=== PATIENT | female | born 1975 | race Caucasian/White ===

== ENCOUNTER 2017-06-05 16:11 | Inpatient (IN) ==
[2017-06-05] MEDS ORDERED: 0.9 % Sodium Chloride 1,000 ML IVC ONE (17:19)
[2017-06-05] MEDS ORDERED: Ondansetron 4 MG/2 ML VIAL IVP ONE (17:19)
[2017-06-05] MEDS ORDERED: *HR* Morphine 2 MG/ML SYRINGE IVP ONE (17:19)
[2017-06-05 17:32] LABS: Basophils % 0.3 %; Eosinophils # 0.4 K/mcL (0.0-0.6); Eosinophils % 2.6 %; Hematocrit 32.2 % (35.3-44.9); Hemoglobin 11.1 g/dL (11.5-15.4); Immature Granulocytes % 0.6 % (0-4); Lymphocytes # 2.9 K/mcL (0.6-4.6); Lymphocytes % 19.2 %; Mean Corpuscular HGB Conc 34.5 g/dL (31.6-35.5); Mean Corpuscular Hemoglobin 38.9 pg (28.0-33.3); Mean Platelet Volume 11.9 fL (9.4-12.4); Monocytes # 1.5 K/mcL (0.0-1.3); Monocytes % 9.6 %; Neutrophils # 10.4 K/mcL (1.6-8.9); Nucleated Red Blood Cells 0.1 /100 WBC (0); Platelet Count 166 K/mcL (140-400); Red Blood Count 2.85 M/mcL (3.82-4.97); Red Cell Distribution Width 16.5 % (11.5-14.5); Segmented Neutrophils % 67.7 %
[2017-06-05 17:35] LABS: Basophils # 0.1 K/mcL (0.0-0.2)
--- NOTE | 2017-06-05 17:35 | Emergency Department Note ---
Disposition Clinical Impression: Transaminitis, Elevated bilirubin, Biliary sludge Leukocytosis Qualifiers: Leukocytosis type: unspecified Qualified Code(s): D72.829 - Elevated white blood cell count, unspecified Disposition: Admitted As Inpatient Condition: Good Referrals: Malena Schreiber CNP [Primary Care Provider] - Forms: ED Satisfaction Letter, Work/School Release Abdominal Pain HPI - General Chief Complaint: ED Abdominal Pain Stated Complaint: ABD Pain,N/V [id number] Time Seen by Provider: 06/05/17 16:28 Source: patient Mode of arrival: private vehicle Limitations: no limitations Nursing Notes Reviewed: Yes Vital Signs Reviewed: Yes - History of Present Illness HPI Narrative: 42-year-old female no medical history who presents to the ER due to abdominal pain. Patient states she has had constant abdominal pain for the last 3 weeks on the right side. Reports she is nauseated and has some vomiting but it was nonbloody and nonbilious. No fevers or diarrhea. No history of abdominal surgeries. No dysuria or hematuria however she has noted that her urine has been dark. No sick contacts. No other complaints. Pt Subjective Complaint: abdominal pain Onset (ago): week(s) Consistency: constant Location: RUQ, R flank Pain Severity: moderate Pain Scale: 8 Quality: stabbing Radiation: none Migration to: no migration Improves with: rest Worsens with: movement Associated symptoms: Reports: nausea, vomiting. Denies: diarrhea, fever, dysuria, hematuria Treatments prior to arrival: none - Related Data Home Medications Medication Instructions Recorded Confirmed Metoprolol [Lopressor] 100 mg PO BID 10/11/15 06/05/17 Allergies Allergy/AdvReac Type Severity Reaction Status Date / Time No Known Allergies Allergy Verified 06/05/17 16:15 All systems ED: reviewed and negative except as stated. Constitutional: Denies: fever Cardiovascular: Denies: chest pain Respiratory: Denies: dyspnea Gastrointestinal: Reports: abdominal pain, nausea, vomiting. 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 history Psychiatric history: Reports: no psych history - Social History Smoking status: Current every day smoker Alcohol use: Reports: occasionally Drug use: Reports: none Physical Exam - General Limitations: no limitations General appearance: alert, in no apparent distress - Head Head exam: atraumatic - Eye Eye exam: Present: normal appearance, scleral icterus - ENT ENT exam: normal exam - Neck Neck exam: Present: normal inspection, full ROM - Chest Chest inspection: Present: normal inspection, symmetric chest wall rise - Respiratory Respiratory exam: Present: normal lung sounds bilaterally - Cardiovascular Cardiovascular exam: Present: regular rate, normal rhythm, normal heart sounds - Abdominal Exam Abdominal exam: Present: soft, tenderness (Moderate tenderness to palpation in the right upper quadrant and right flank without distention guarding or rigidity.) - Extremities Exam Extremities exam: Present: normal inspection, full ROM - Expanded Upper Extremity Exam Shoulder exam: Present: normal inspection, full ROM Arm exam: Present: normal inspection, full ROM Elbow exam: Present: normal inspection, full ROM Forearm/Wrist exam: Present: normal inspection, full ROM Hand exam: Present: normal inspection, full ROM - Expanded Lower Extremity Exam Hip/Pelvis exam: Present: normal inspection, full ROM Upper leg exam: Present: normal inspection, full ROM Knee exam: Present: normal inspection, full ROM Lower leg exam: Present: normal inspection, full ROM Ankle exam: Present: normal inspection, full ROM Foot/toe exam: Present: normal inspection, full ROM Neurovascular/Tendon exam: Absent: motor deficit, sensory deficit - Neurological Exam Neurological exam: Present: alert - Psychiatric Psychiatric exam: Present: normal affect - Skin Skin exam: Present: warm, dry, intact Course Course Narrative: Patient seen and examined. CT scan of the abdomen and pelvis as well as labs. Urinalysis ordered. We will give her some IV fluids, morphine and Zofran. - Reevaluation(s) Reevaluation #1: Discussed results and imaging lab work with the patient. Agreeable with gallbladder ultrasound as well as hepatitis panel and admission. She does report that she drinks a pint and a half of vodka daily with last drink last night. No history of withdrawal. - Consultations Consultation #1: I spoke with the on-call hospice consultant Dr. Saleh. Discussed the patient's history and exam labs and imaging. Reports the CT findings are nonspecific and will perform an MRCP. Vital Signs Temperature 98.2 F 06/05/17 16:12 Pulse Rate 73 06/05/17 16:12 Respiratory Rate 16 06/05/17 16:12 Blood Pressure 118/76 06/05/17 16:12 O2 Sat by Pulse Oximetry 97 06/05/17 16:12 Temperature 98.2 F 06/05/17 16:12 Pulse Rate 80 06/05/17 19:38 Respiratory Rate 16 06/05/17 19:38 Blood Pressure 109/52 06/05/17 19:38 O2 Sat by Pulse Oximetry 97 06/05/17 19:38 Oxygen Delivery Oxygen Delivery Room Air Abdominal Pain - MDM Narrative Medical decision making narrative: 42-year-old female presents to the ER due to right-sided abdominal pain for 3 weeks in duration. Afebrile here. Initial labs showed an elevated bilirubin as well as transaminitis. Lipase is normal. CT scan with multiple findings including questionable enteritis as well as mesenteric stranding. She has had no diarrhea recently. Given her transaminitis and an ultrasound was performed which shows biliary sludge without ultrasound evidence of acute cholecystitis. She does report drinking a pint and a half of vodka daily without history of withdrawal. I discussed this case with the on-call hospice consultant. Patient admitted to the hospitalist service with gastroenterology consultation. - Lab Data Lab results reviewed: Yes I reviewed the patient's lab results. Result diagrams: 06/05/17 17:12 06/05/17 17:12 Lab Results 06/05/17 06/05/17 06/05/17 Range/Units 17:12 17:12 17:12 WBC 15.3 H (4.3-11.1) K/mcL RBC 2.85 L (3.82-4.97) M/mcL Hgb 11.1 L (11.5-15.4) g/dL Hct 32.2 L (35.3-44.9) % MCV 113.0 H (83.0-100.0) fL MCH 38.9 H (28.0-33.3) pg MCHC 34.5 (31.6-35.5) g/dL RDW 16.5 H (11.5-14.5) % Plt Count 166 (140-400) K/mcL MPV 11.9 (9.4-12.4) fL Immature Gran % 0.6 (0-4) % Seg Neutrophils % 67.7 % Lymphocytes % 19.2 % Monocytes % 9.6 % Eosinophils % 2.6 % Basophils % 0.3 % Neutrophils # 10.4 H (1.6-8.9) K/mcL Lymphocytes # 2.9 (0.6-4.6) K/mcL Monocytes # 1.5 H (0.0-1.3) K/mcL Eosinophils # 0.4 (0.0-0.6) K/mcL Basophils # 0.1 (0.0-0.2) K/mcL Nucleated RBCs/100 WBC 0.1 H (0) /100 WBC Platelet Estimate Normal (Normal) Macrocytosis Present A (Not Present) PT (9.4-12.1) Seconds INR APTT (26.0-36.0) Seconds Sodium 136 (136-145) mEq/L Potassium 3.4 L (3.5-4.5) mEq/L Chloride 99 (98-109) mEq/L Carbon Dioxide 26 (19-29) mEq/L BUN 4 L (7-20) mg/dL Creatinine 0.62 (0.57-1.11) mg/dL Est GFR ( Amer) > 60 (> 60) Est GFR (Non-Af Amer) > 60 (> 60) BUN/Creatinine Ratio 6 (6-26) Glucose 111 H (70-99) mg/dL Calculated Osmolality 280 (280-300) Calcium 8.9 (8.6-10.8) mg/dL Total Bilirubin 4.7 H (0.2-1.2) mg/dL Direct Bilirubin 3.0 H (0.0-0.5) mg/dL Indirect Bilirubin 1.7 H (0.0-1.2) mg/dL AST 128 H (5-34) Units/L ALT 36 (0-55) Units/L Alkaline Phosphatase 113 (38-126) Units/L Serum Total Protein 7.4 (6.0-8.3) g/dL Albumin 2.7 L (3.5-5.0) g/dL Globulin 4.7 H (2.4-3.5) g/dL Albumin/Globulin Ratio 0.6 L (1.1-2.2) Lipase 30 (8-78) Units/L Ur Specimen Adequacy Urine Color (Yellow) Urine Clarity (Clear) Urine pH Ur Specific [place] Urine Protein Urine Glucose (UA) Urine Ketones Urine Blood Urine Nitrite Urine Bilirubin Urine Urobilinogen Ur Leukocyte Esterase Urine Microscopic RBC (0-3) per hpf Urine Microscopic WBC (0-3) per hpf Ur Squamous Epith Cells (None-Few) per lpf Amorphous Sediment (Few) Urine Bacteria (None-Few) per hpf Hyaline Casts (None-Few) per lpf Ur Culture Indicated? (NO) Hepatitis A IgM Ab Nonreactive (Nonreactive) Hep Bs Antigen Nonreactive (Nonreactive) Hep B Core IgM Ab Nonreactive (Nonreactive) Hepatitis C Ab Screen Nonreactive (Nonreactive) 06/05/17 06/05/17 Range/Units 17:12 18:33 WBC (4.3-11.1) K/mcL RBC (3.82-4.97) M/mcL Hgb (11.5-15.4) g/dL Hct (35.3-44.9) % MCV (83.0-100.0) fL MCH (28.0-33.3) pg MCHC (31.6-35.5) g/dL RDW (11.5-14.5) % Plt Count (140-400) K/mcL MPV (9.4-12.4) fL Immature Gran % (0-4) % Seg Neutrophils % % Lymphocytes % % Monocytes % % Eosinophils % % Basophils % % Neutrophils # (1.6-8.9) K/mcL Lymphocytes # (0.6-4.6) K/mcL Monocytes # (0.0-1.3) K/mcL Eosinophils # (0.0-0.6) K/mcL Basophils # (0.0-0.2) K/mcL Nucleated RBCs/100 WBC (0) /100 WBC Platelet Estimate (Normal) Macrocytosis (Not Present) PT 15.6 H (9.4-12.1) Seconds INR 1.4 APTT 40.5 H (26.0-36.0) Seconds Sodium (136-145) mEq/L Potassium (3.5-4.5) mEq/L Chloride (98-109) mEq/L Carbon Dioxide (19-29) mEq/L BUN (7-20) mg/dL Creatinine (0.57-1.11) mg/dL Est GFR ( Amer) (> 60) Est GFR (Non-Af Amer) (> 60) BUN/Creatinine Ratio (6-26) Glucose (70-99) mg/dL Calculated Osmolality (280-300) Calcium (8.6-10.8) mg/dL Total Bilirubin (0.2-1.2) mg/dL Direct Bilirubin (0.0-0.5) mg/dL Indirect Bilirubin (0.0-1.2) mg/dL AST (5-34) Units/L ALT (0-55) Units/L Alkaline Phosphatase (38-126) Units/L Serum Total Protein (6.0-8.3) g/dL Albumin (3.5-5.0) g/dL Globulin (2.4-3.5) g/dL Albumin/Globulin Ratio (1.1-2.2) Lipase (8-78) Units/L Ur Specimen Adequacy See below A Urine Color [place] A (Yellow) Urine Clarity [place] A (Clear) Urine pH TNP Ur Specific [place] TNP Urine Protein TNP Urine Glucose (UA) TNP Urine Ketones TNP Urine Blood TNP Urine Nitrite TNP Urine Bilirubin TNP Urine Urobilinogen TNP Ur Leukocyte Esterase TNP Urine Microscopic RBC 0-3 (0-3) per hpf Urine Microscopic WBC 3-5 H (0-3) per hpf Ur Squamous Epith Cells Many H (None-Few) per lpf Amorphous Sediment Many H (Few) Urine Bacteria Few (None-Few) per hpf Hyaline Casts None Seen (None-Few) per lpf Ur Culture Indicated? NO (NO) Hepatitis A IgM Ab (Nonreactive) Hep Bs Antigen (Nonreactive) Hep B Core IgM Ab (Nonreactive) Hepatitis C Ab Screen (Nonreactive) - Radiology Data Radiology results reviewed: Yes I reviewed the patient's radiology results. Abdomen/Pelvis CT 06/05/17 17:19 IMPRESSION: 1. Increased severe hepatomegaly. Periportal hypodensity suggests an atypical distribution of steatosis. However, superimposed hepatitis is not excluded given pain. Early cirrhotic change may also be present. 2. Questionable wall thickening and stranding associated with some proximal jejunal loops, potentially enteritis. 3. Edema or inflammatory stranding in the small bowel mesentery, extending toward the pancreas. Pancreatitis could result in this appearance. 4. Increased size of a 2.1 cm x 0.9 cm predominantly solid part solid nodule in the left lower lobe with a new adjacent 0.8 cm x 0 7 cm nodule. Additional solid nodules measuring up to 0.6 cm x 0.4 cm are present the right lower lobe and lingula. An infectious or inflammatory etiology is favored with the largest nodule potentially representing a dilated bronchus with secretions. Recommend follow-up chest CT in 3-6 months per the Fleischner Society recommendations for solid pulmonary nodules as below. 5. Questionable tree-in-bud opacities in the lingula, suggesting infectious or inflammatory bronchiolitis. 6. Mild splenomegaly, trace ascites, and increased venous collateral formation, potentially due to portal hypertension. RECOMMENDATIONS: Fleischner Society guidelines for follow-up and management of incidentally detected pulmonary nodules: Multiple Solid Nodules: Nodule size greater than 8 mm In a high-risk patient, CT at 3-6 months, then CT at 18-24 months. Radiology 2017 http://pubs.rsna.org/doi/full/[email or web address] D/ / Chay Pepe MD / Chay Pepe MD Interpreting Provider: Chay Pepe MD Gallbladder Ultrasound 06/05/17 18:39 IMPRESSION: 1. Gallbladder sludge without sonographic evidence of acute cholecystitis. 2. Trace pericholecystic free fluid is favored reactive secondary to hepatic disease as there is hepatomegaly with diffusely coarsened hepatic parenchymal echogenicity in keeping with chronic bibasilar dysfunction. D/ / Feroz Alvarez MD / Feroz Alvarez MD Interpreting Provider: Feroz Alvarez MD S.B.AHarleen - SKeilaAHarleen Situation: Demographics, MOA Background: Presenting Complaint, Relevant PMH, Meds, & Allergies Assessment: Vital Signs, Course and respsone to treatment, Exam Concerns, Patient/Family Expectation, Pertinant Lab Results Recommendation: Barrier(s) to disposition, Recommendation based on pending studies, treatments, or consults SCeciliaBMarcial Report Given to: Dr. Aleta Wasserman Repor Time: 19:56
[2017-06-05 17:49] LABS: Alanine Aminotransferase 36 Units/L (0-55); Albumin 2.7 g/dL (3.5-5.0); Albumin/Globulin Ratio 0.6 (1.1-2.2); Alkaline Phosphatase 113 Units/L (38-126); Aspartate Amino Transferase 128 Units/L (5-34); BUN/Creatinine Ratio 6 (6-26); Bilirubin,Indirect 1.7 mg/dL (0.0-1.2); Bilirubin,Total 4.7 mg/dL (0.2-1.2); Calcium 8.9 mg/dL (8.6-10.8); Carbon Dioxide 26 mEq/L (19-29); Chloride 99 mEq/L (98-109); Globulin 4.7 g/dL (2.4-3.5); Glucose 111 mg/dL (70-99); Lipase 30 Units/L (8-78); Osmolality,Calculated 280 (280-300); Potassium 3.4 mEq/L (3.5-4.5); Sodium 136 mEq/L (136-145); Total Protein 7.4 g/dL (6.0-8.3); eGFR For African Americans > 60 (> 60); eGFR For Non-African Americans > 60 (> 60)
[2017-06-05 17:50] LABS: Blood Urea Nitrogen 4 mg/dL (7-20)
[2017-06-05 17:52] LABS: Macrocytosis Present (Not Present)
[2017-06-05 17:53] LABS: Platelet Estimate Normal (Normal)
--- NOTE | 2017-06-05 18:31 | Emergency Department Note ---
START Narrative - START START: I examined this patient and my medical decision-making was reviewed with the Resident Physician. I agree with the documented findings, disposition and treatment plan as described except to the extent set forth below. 42 year old female presnts to the ED with RUQ pain and sclera icterus and drinks abotu 3-4 pint of vodka a day and is nexcpericngin increased nasuea. Patinet has elevated bilirubin and AST, no previous diagoniss of liver cirrhosis or hepatitis. Concern for acute pipo vs live pathology. liipase normal. We will do a ABCT and likey consult to GI .
[2017-06-05 18:45] LABS: Clarity,Urine Turbid (Clear)
[2017-06-05 19:00] LABS: Color,Urine Orange (Yellow)
[2017-06-05 19:04] LABS: Hyaline Casts,Urine None Seen per lpf (None-Few)
[2017-06-05 19:05] LABS: Amorphous Sediment,Urine Many (Few); Squamous Epithelial Cell,Urine Many per lpf (None-Few)
[2017-06-05 19:06] LABS: RBC,Urine 0-3 per hpf (0-3)
[2017-06-05 19:07] LABS: Bacteria,Urine Few per hpf (None-Few)
[2017-06-05] MEDS ORDERED: Piperacillin/Tazobactam 3.375 GM in D5% in Water (Mini-Bag+) 100 ML IVPB ONE (19:15)
[2017-06-05] MEDS: Piperacillin/Tazobactam 3.375 GM in D5% in Water (Mini-Bag+) 100 ML IVPB ONE ×2 (19:27→19:31)
[2017-06-05 19:43] LABS: INR 1.4; Prothrombin Time 15.6 Seconds (9.4-12.1)
[2017-06-05 19:45] LABS: Activated Partial Thrombo Time 40.5 Seconds (26.0-36.0)
[2017-06-05 19:46] LABS: Hepatitis A Antibody IgM Nonreactive (Nonreactive); Hepatitis B Core IgM Nonreactive (Nonreactive); Hepatitis B Surface Antigen Nonreactive (Nonreactive); Hepatitis C Virus Antibody Nonreactive (Nonreactive)
[2017-06-05] MEDS ORDERED: *HR* OxyCODONE Immed Rel 5 MG TABLET PO PRN (20:37)
[2017-06-05] MEDS ORDERED: *HR* Morphine 2 MG/ML SYRINGE IVP PRN (20:37)
[2017-06-05] MEDS ORDERED: Naloxone 0.4 MG/ML INJ IVP PRN (20:37)
[2017-06-05] MEDS ORDERED: Ondansetron 4 MG/2 ML VIAL IVP PRN (20:37)
--- NOTE | 2017-06-05 20:54 | Internal Med History&Physical ---
<Artur Ignacio - Last Filed: 06/05/17 22:15> Date of Encounter: 06/05/17 Time of Encounter: 20:51 Assessment and Plan (1) Alcoholic steatohepatitis Current visit: Yes Status: Acute - Maddrey discriminant function score 21.3, good prognosis - MELD score 17 - Reported history of chronic alcohol abuse as documented below. - Elevated AST 128, elevated bili 4.7, coags and WBC elevated as well. - Abdominal CT and US show atypical steatosis with possible hepatitis as well as biliary sludge. - hepatitis panel negative. - Will continue Zosyn for infectious coverage in case of biliary sludge . - Supportive treatment. Fluids, folate, B12, pain control. Clear liquid diet as tolerated. Zofran PRN nausea. - GI consulted in ED, appreciate recommendations. (2) Alcohol abuse Current visit: Yes Status: Acute - Admits to drinking 2 pints of vodka per day for many years - States she has never withdrawn. Non anxious, non confused, VSS on exam. - CIWA protocol, q1hr checks, ativan PRN - Also giving librium 50 TID for long acting coverage. - SW consult, pt states she is ready to cut down. Cessation discussed. (3) Macrocytic anemia Current visit: Yes Status: Chronic - Likely secondary to alcohol abuse with vitamin deficiency. - Folate and B12 levels pending. - H/H stable. - Given banana bag in ED, will replenish as necessary. - Serial H/H to monitor for GI bleed. (4) HTN (hypertension) Current visit: Yes Status: Chronic - Well controlled since admission. - Continue home metoprolol with parameters to hold if BP <120/80 Qualifiers: Hypertension type: essential hypertension Qualified Code(s): I10 - Essential (primary) hypertension (5) DVT prophylaxis Current visit: Yes Status: Acute SCDs. Holding A/C due to elevated coags Internal Medicine - H&P: HPI Chief complaint: abdominal pain Admitted From: Emergency Dept Plans for Post Hospital Care: Home History of present illness: Ms. Da Silva is a 42 year old female who presents to ED with a complaint of RUQ abdominal pain, nausea, vomiting x 3 weeks. She has a PMhx of HTN and GBS following kidney infection. She states the pain and nausea have been constant in this time. Describes the pain as stabbing and sometimes wraps around her right side. Admits to approximately 1 episode of emesis per day in the morning. Denies any sick contacts, recent travel, new foods, changes in meds, needle sticks or work exposures. She does admit to drinking heavily including approximately 2 pints of vodka per night for many years. Her last drink was last evening. She denies any history of withdrawls. Denies any symptoms of chest pain, SOB, fevers, new numbness or tingling, palpitations, HORNER, lightheadedness. Also admits to decreased oral intake due to nausea and pain, blurry visionx 2-3 days. In the ED, VSS, labs significant for mild white count of 15, macrocytic anemia, elevated coags, bilirubin, AST. Hepatitis panel negative. Abdominal CT shows hepatomegaly with atypical steatosis and biliary sludge. RUQ US reveals similar. Past Med Surg Social Fam HX - Past Medical History Medical history: hypertension, other (Guillain barre ) Psychiatric history: no psych history - Social History Smoking Status: Current every day smoker Smokeless Tobacco Status: No Alcohol use: occasionally Drug use: none Internal Medicine - H&P: Meds Metoprolol [Lopressor] 100 mg PO BID 10/11/15 [History] 3 Allergy/AdvReac Type Severity Reaction Status Date / Time No Known Allergies Allergy Verified 06/05/17 16:15 All Systems PM: A 10-system review of systems was performed and is negative for pertinent findings except as documented above in the HPI. - Constitutional Constitutional: chills, no anorexia, no fatigue, no fever(s) - EENT Eyes: blurry vision, change in vision - Cardiovascular Cardiovascular ROS IM: no chest pain, no diaphoresis, no dyspnea, no dyspnea on exertion, no edema, no lightheadedness, no palpitations - Respiratory Respiratory: no dyspnea, no hemoptysis, no dyspnea on exertion - Gastrointestinal Gastrointestinal: abdominal pain, nausea, vomiting, no bloating, no change in bowel habits, no change in stool character, no constipation, no diarrhea, no hematemesis, no hematochezia, no loose stools, no melena - Genitourinary Genitourinary: no dysuria - Musculoskeletal Musculoskeletal ROS IM: no muscle weakness, no numbness, no tingling - Neurological Neurological ROS: no confusion, no dizziness, no focal weakness, no headache(s) , no loss of vision, no numbness, no tingling, no weakness - Psychiatric Psychiatric: no confusion, no hallucinations - Constitutional Vitals: Temp Pulse Resp BP Pulse Ox 98.2 F 80 16 109/52 97 06/05/17 16:12 06/05/17 19:38 06/05/17 19:38 06/05/17 19:38 06/05/17 19:38 Exam: Gen.: Vitals noted. No acute distress. AAOx3 HEENT: PERRL, oropharynx clear, Normocephalic, atraumatic, MMM. No scleral icterus Cardiac: RRR, no murmur, +S1/S2 Pulmonary: mild diffuse inspiratory wheezes. equal chest expansion Abdomen: soft, mild tenderness in RUQ, hepatomegaly, BS noted, no guarding Back: Nontender throughout. MSK: ROM intact, no joint swelling noted Extremities: no BLE edema, nontender calf, no cyanosis or clubbing Skin: Non jaundiced. Telangectasia on chest wall noted. Neuro: A&Ox3, moves all extremities, no focal deficits. Absent LE reflexes, chronic due to reported GBS. Psych: Appropriate mood and behavior Internal Med - H&P Results - Labs CBC & Chem 7: 06/05/17 17:12 06/05/17 17:12 <Stevan River - Last Filed: 06/05/17 23:49> Date of Encounter: 06/05/17 Time of Encounter: 23:24 Past Med Surg Social Fam HX - Past Medical History Attestation: Yes The following information was validated with the patient. Source: patient Medical history: hypertension, other (alcohol abuse) - Past Surgical History Surgical History: no surgical history - Social History Smoking Status: Current every day smoker Alcohol use: heavy Drug use: none Current living situation: Home Activity Level: Independent ambulation Recent Out of Country Travel Within the Last 8 Weeks: No - Additional Family History Additional family history: + FH of alcohol abuse - Constitutional Constitutional: chills, no fever(s), no night sweats - EENT Ears: no ear pain, no tinnitus Nose, mouth and throat: no nasal congestion, no sinus pressure, no sore throat - Cardiovascular Cardiovascular ROS IM: no chest pain, no dyspnea - Respiratory Respiratory: no cough, no dyspnea, no hemoptysis, no chest congestion - Gastrointestinal Gastrointestinal: abdominal pain, dyspepsia, nausea, vomiting, no hematemesis, no hematochezia, no melena - Genitourinary Genitourinary: no dysuria, no flank pain, no hematuria - Musculoskeletal Musculoskeletal ROS IM: no muscle weakness, no numbness, no tingling - Integumentary Integumentary IM: no rash, no unusual bruising, no jaundice - Neurological Neurological ROS: no confusion, no dizziness, no focal weakness, no headache(s) - Psychiatric Psychiatric: no anxiety, no confusion, no depression, no hallucinations - Endocrine Endocrine IM: no polydipsia, no polyuria - Hematologic/Lymphatic Hematologic/Lymphatic: no easy bruising, no lymphadenopathy - Allergic/Immunologic Allergic/Immunologic: no wheezing, no GI upset with certain foods - Constitutional Vitals: Temp Pulse Resp BP Pulse Ox 98.3 F 66 15 111/72 99 06/05/17 20:50 06/05/17 20:50 06/05/17 20:50 06/05/17 20:50 06/05/17 20:50 General appearance: Present: cooperative, A&O X 3, pleasant, no acute distress - Head Head exam: Present: atraumatic, normal inspection - Eye Eye exam: Present: EOMI, normal appearance, PERRL, scleral icterus (mild scleral icterus) - ENT ENT exam: Present: mucous membranes dry, normal exam - Neck Neck exam general surgery: Present: supple - Respiratory Respiratory exam: Present: CTAB. Absent: rales, rhonchi, wheezes - Cardiovascular Cardiovascular exam: Present: RRR, +S1, +S2. Absent: diastolic murmur, systolic murmur - GI/Abdominal GI/Abdominal exam: Present: soft, tenderness (RUQ and epigastrium), no peritoneal signs. Absent: guarding, rebound - Extremities Exam Extremities exam: Present: full ROM, warm. Absent: calf tenderness, pedal edema - Back Exam Back exam: Absent: CVA tenderness (L), CVA tenderness (R) - Neurological Exam Neurological exam: Present: alert, oriented X3, no focal deficits - Psychiatric Psychiatric exam: Present: normal affect, normal mood - Skin Skin exam: Present: dry, warm. Absent: rash Internal Med - H&P Results - Labs CBC & Chem 7: 06/05/17 17:12 06/05/17 17:12 - Attending Attestation I discussed the patient TETLIN, PMH, ROS, lab data, and exam findings with Dr. Ignacio. I then saw and examined patient independently as well. Patient has evidence of acute hepatitis -- likely alcohol induced. Acute hepatitis serologies are negative. She is at high risk of alcohol withdrawal. I asked RN to place patient on telemetry for concerns of withdrawal and to monitor her closely on CIWA protocol. We have placed her on scheduled Librium as well with hope of preventing withdrawal. We will continue IV antibiotics for the remote possibility of infection with GI jorge. I counseled patient at length on the need to quit alcohol and she's motivated. She states she's never gone through withdrawal, but given her excessive intake of alcohol, she is at high risk of withdrawal. Other than my comments noted above and detailed exam findings, I agree with Dr. Ignacio's assessment and plan.
[2017-06-05] MEDS ORDERED: *HR* LORazepam 2 MG/ML VIAL IVP PRN (20:59)
[2017-06-05] MEDS ORDERED: Metoprolol 100 MG TABLET PO SCH (21:00)
[2017-06-05] MEDS: 0.9 % Sodium Chloride 1,000 ML IVC SCH (21:17)
[2017-06-06 01:59] LABS: Amphetamine Screen,Urine Negative ng/mL (Cutoff=1000); Barbiturate Screen,Urine Negative ng/mL (Cutoff=200); Benzodiazepines Screen,Urine Negative ng/mL (Cutoff=200); Cannabinoid Screen,Urine Positive ng/mL (Cutoff = 50); Cocaine Screen,Urine Negative ng/mL (Cutoff= 300); Opiate Screen,Urine Positive ng/mL (Cutoff=300); Phencyclidine Screen,Urine Negative ng/mL (Cutoff=25)
[2017-06-06] MEDS: Famotidine 20 MG/2 ML VIAL IVP SCH ×2 (05:03→16:08)
[2017-06-06] MEDS: 0.9 % Sodium Chloride 1,000 ML IVC SCH (05:06)
[2017-06-06 05:50] LABS: Basophils % 0.3 %; Eosinophils # 0.5 K/mcL (0.0-0.6); Eosinophils % 3.4 %; Hematocrit 29.4 % (35.3-44.9); Hemoglobin 10.1 g/dL (11.5-15.4); Immature Granulocytes % 0.5 % (0-4); Lymphocytes # 2.7 K/mcL (0.6-4.6); Lymphocytes % 19.9 %; Mean Corpuscular HGB Conc 34.4 g/dL (31.6-35.5); Mean Corpuscular Hemoglobin 38.7 pg (28.0-33.3); Mean Corpuscular Volume 112.6 fL (83.0-100.0); Mean Platelet Volume 11.6 fL (9.4-12.4); Monocytes # 1.2 K/mcL (0.0-1.3); Monocytes % 8.5 %; Neutrophils # 9.2 K/mcL (1.6-8.9); Platelet Count 150 K/mcL (140-400); Red Blood Count 2.61 M/mcL (3.82-4.97); Red Cell Distribution Width 16.6 % (11.5-14.5); Segmented Neutrophils % 67.4 %
[2017-06-06 06:03] LABS: Alanine Aminotransferase 34 Units/L (0-55); Albumin 2.7 g/dL (3.5-5.0); Albumin/Globulin Ratio 0.7 (1.1-2.2); Alkaline Phosphatase 100 Units/L (38-126); Aspartate Amino Transferase 110 Units/L (5-34); BUN/Creatinine Ratio 6 (6-26); Bilirubin,Total 4.3 mg/dL (0.2-1.2); Calcium 8.2 mg/dL (8.6-10.8); Carbon Dioxide 26 mEq/L (19-29); Chloride 100 mEq/L (98-109); Gamma Glutamyl Transpeptidase 275 Units/L (9-36); Globulin 4.1 g/dL (2.4-3.5); Glucose 97 mg/dL (70-99); Magnesium 1.6 mg/dL (1.6-2.6); Osmolality,Calculated 279 (280-300); Sodium 136 mEq/L (136-145); Total Protein 6.8 g/dL (6.0-8.3); eGFR For African Americans > 60 (> 60); eGFR For Non-African Americans > 60 (> 60)
[2017-06-06 06:06] LABS: Blood Urea Nitrogen 4 mg/dL (7-20)
[2017-06-06 06:38] LABS: Folate 2.3 ng/mL (7.0-31.4)
[2017-06-06 06:40] LABS: Macrocytosis Present (Not Present); Platelet Estimate Normal (Normal)
[2017-06-06] MEDS: Folic Acid 1 MG TABLET PO SCH (09:22)
[2017-06-06] MEDS: Metoprolol 100 MG TABLET PO SCH ×2 (09:22→20:13)
[2017-06-06] MEDS: Thiamine (B-1) 100 MG TABLET PO SCH (09:22)
[2017-06-06] MEDS: Vitamin B Complex/Vit C/Vit E 1 EACH TABLET PO SCH (09:22)
--- NOTE | 2017-06-06 09:24 | Gastroenterology Consult Note ---
Date of Encounter: 06/06/17 Time of Encounter: 09:22 - Assessment and plan (1) Alcoholic steatohepatitis Current Visit: Yes Status: Acute (2) Alcohol abuse Current Visit: Yes Status: Acute (3) Elevated bilirubin Current Visit: Yes Status: Acute - Time Spent With Patient Total time spent is greater than 50% in coordination of care (as documented) at patient's floor/unit and/or counseling patient: GI History of Present Illness - Data of Consult Consult date: 06/06/17 Requesting Physician: Melvi Rios MD - Consult Narrative Reason for consult: Alcoholic Steatohepatitis History of present illness: Ms. Da Silva is a 42 year old female Past Med Surg Social Fam HX - Past Medical History Medical history: hypertension, other (alcohol abuse) Psychiatric history: no psych history - Past Surgical History Surgical History: no surgical history - Social History Smoking Status: Current every day smoker Packs per day: 1ppd Smokeless Tobacco Status: No Alcohol use: heavy Drug use: none - Constitutional Vitals: Temp Pulse Resp BP Pulse Ox 98.5 F 67 16 108/70 98 06/06/17 07:55 06/06/17 07:55 06/06/17 07:55 06/06/17 07:55 06/06/17 07:55 Exam: General: Patient alert, awake, oriented 3, interactive, in no acute distress HEENT: Normocephalic, atraumatic, pupils equal reactive to light, nasal cavity patent and open septum median position, oral mucosa moist, uvula midline, neck supple trachea midline no palpable lymphadenopathy, no thyromegaly. Chest: Symmetric bilateral correlating with respiratory effort, effort nonlabored. Cardiac: Regular rate and rhythm, positive S1 and S2. no bruits appreciated bilateral carotids, Radial pulses 2+ bilateral, posterior tibial and dorsal pedal pulses 2+ bilateral. Respiratory: Clear to auscultation all lung workman Abdomen: Soft, nontender, positive bowel sounds, no palpable masses appreciated on examination Extremities: Symmetric bilateral, bilateral lower extremities without erythema or edema patient moving all 4 extremities spontaneously. Neurologic: No focal deficits appreciated on examination. Face symmetric, muscle strength symmetric bilateral upper and lower extremities. Results - Labs CBC & Chem 7: 06/06/17 05:35 06/06/17 05:35 Labs: Last Result Calcium 8.2 mg/dL (8.6-10.8) L 06/06/17 05:35 Vitamin B12 1043 pg/mL (213-816) H 06/06/17 05:35 Folate 2.3 ng/mL (7.0-31.4) L 06/06/17 05:35 Urine Opiates Screen Positive ng/mL (Jbxqvb=515) H 06/06/17 00:30 Entire Visit Hgb 10.1 g/dL (11.5-15.4) L 06/06/17 05:35 Hct 29.4 % (35.3-44.9) L 06/06/17 05:35 PT 15.6 Seconds (9.4-12.1) H 06/05/17 17:12 Total Bilirubin 4.3 mg/dL (0.2-1.2) H 06/06/17 05:35 AST 110 Units/L (5-34) H 06/06/17 05:35 ALT 34 Units/L (0-55) 06/06/17 05:35 Lipase 30 Units/L (8-78) 06/05/17 17:12 Folate 2.3 ng/mL (7.0-31.4) L 06/06/17 05:35 - ABG ABG results: PT/INR, D-dimer PT 15.6 Seconds (9.4-12.1) H 06/05/17 17:12 Consult Discharge Plan - Plan Referrals: Malena Schrebier, SCHOOL NURSE [Primary Care Provider] -
--- NOTE | 2017-06-06 09:24 | Discharge Summary ---
Date of Encounter: 06/06/17 Time of Encounter: 09:24 - Discharge Diagnosis (1) Alcoholic steatohepatitis Priority: Primary Status: Acute (2) Insomnia Priority: Secondary Status: Acute Qualifiers: Insomnia type: other insomnia Qualified Code(s): G47.09 - Other insomnia (3) Bronchiolitis Priority: Secondary Status: Acute (4) Lung nodules Priority: Secondary Status: Acute (5) Alcohol abuse Priority: Secondary Status: Acute (6) Biliary sludge Priority: Secondary Status: Acute (7) HTN (hypertension) Priority: Secondary Status: Chronic Qualifiers: Hypertension type: essential hypertension Qualified Code(s): I10 - Essential (primary) hypertension (8) Macrocytic anemia Priority: Secondary Status: Chronic - Discharge Medications Prescriptions: Folic Acid 1 mg PO DAILY #30 tablet Thiamine (B-1) [Vitamin B-1] 100 mg PO DAILY #30 tablet traZODone [TraZODone] 50 mg PO HS #30 tablet Home Medications: Metoprolol [Lopressor] 100 mg PO BID 10/11/15 [History] Folic Acid 1 mg PO DAILY #30 tablet 06/06/17 [Rx] Thiamine (B-1) [Vitamin B-1] 100 mg PO DAILY #30 tablet 06/06/17 [Rx] traZODone [TraZODone] 50 mg PO HS #30 tablet 06/06/17 [Rx] Allergies/Adverse Reactions: 3 Allergy/AdvReac Type Severity Reaction Status Date / Time No Known Allergies Allergy Verified 06/05/17 16:15 Date of admission: 06/05/17 23:55 Primary care physician: Malena Schreiber CNP Discharging clinician: Melvi Rios Anticipated date of discharge: 06/06/17 - Patient Status Disposition: Home, Self-Care Condition: Good Functional capacity at discharge: independent ambulation Overall status at discharge: patient is progressing back to baseline - Discharge Instructions Instructions: Chronic Hypertension (DC), Anemia (GEN) Follow Up With: Malena Schreiber CNP [Primary Care Provider] - Hospital course: Ms. Da Silva is a 42 year old female - Time Spent with Patient Total time spent providing and/or coordinating discharge services: - Constitutional Vitals: Temp Pulse Resp BP Pulse Ox 98.5 F 67 16 108/70 98 06/06/17 07:55 06/06/17 07:55 06/06/17 07:55 06/06/17 07:55 06/06/17 07:55 General appearance: Present: cooperative, A&O X 3, pleasant, no acute distress - VTE Documentation of Mechanical Device: Intermittent pneumatic compression device
[2017-06-06] MEDS ORDERED: Azithromycin 250 MG TABLET PO SCH (09:45)
--- NOTE | 2017-06-06 09:45 | Pulmonology Consult Note ---
Date of Encounter: 06/06/17 Time of Encounter: 09:44 Assessment and Plan (1) Lung nodules Current Visit: Yes Status: Acute Patient has multiple lung nodules primarily in the left lower lobe the largest of which is proximally 2 cm and this is a smooths semisolid nodule that abuts the distal bronchi. Possible consistent with mucus impaction although this is grown over the last couple years she is statistically lower risk for neoplasia but given her smoking exercises and lesion it is concerning for possibility of neoplasm. I would recommend starting with bronchoscopy with airway examination and BAL in the left lower lobe and based upon [place] biological data and cytology further outpatient investigation of repeat imaging of possible PET/CT/ biopsy. Patient is agreeable to this A bronchoscopy is recommended. The procedure , risks, benefits, complications, and expected outcomes have been reviewed. Benefits of diagnosis, as well as risks to include bleeding, infection, pneumothorax which may require surgical intervention, and in a small population. The patient is aware that sometimes test is nondiagnostic. Discussed with patient and agrees to proceed. (2) Bronchiolitis Current Visit: Yes Status: Acute Differential diagnosis for this would be smoking related lung disease or aspiration I favor at least need acute event aspiration for which a course of antimicrobials is warranted to cover for possible aspiration organisms she is currently on Zosyn which can be de-escalate her to Augmentin to complete a 7-10 day course as an outpatient. Bronchoscopy as outlined above in clearly smoking cessation would be important regardless of further diagnostic workup (3) COPD suggested by initial evaluation Current Visit: Yes Status: Acute Evidence of bronchitic phenotype from chronic smoking will need outpatient PFTs she should be discharged with a short acting beta agonist I do not feel that she has a COPD exacerbation at present (4) Tobacco abuse Current Visit: Yes Status: Acute Vital counseling given patient is understanding that tobacco is affecting her health and increased risk of neoplasia heart disease and ongoing respiratory complications she should be be be provided with a nicotine replacement while inpatient and at time of discharge (5) Alcoholic steatohepatitis Current Visit: Yes Status: Acute This is being followed by the GI service and the primary medicine service (6) Alcohol abuse Current Visit: Yes Status: Acute Counseled patient about seeking outpatient detoxification and recommend social service consult prior to discharge History of Present Illness Consult date: 06/06/17 Requesting physician: Melvi Rios Reason for consult: abnormal CXR/CT Chief complaint: RUQ Pain History of present illness: This is a 42-year-old woman with a past medical history of alcoholism tobacco abuse and morbid obesity who presented for approximately 2 week history of nausea and vomiting with ongoing alcohol use. She was found to have elevated in liver enzymes on admission with evidence of portal hypertension along with alcoholic hepatis steatosis. For that standpoint she seems to be improving since admission however it was noted on a CT of the abdomen in the lower lung field cuts that she had left lower lobe pulmonary nodules some of which have increased in size over the last year. 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 but no other significant exposures keeps dogs at home but no exotic smokes about a pack a day since the age of 18 denies IV drug abuse no recent travel or sick contacts Past Med Surg Social Fam HX - Past Medical History Medical history: hypertension, other (alcohol abuse) Psychiatric history: no psych history - Past Surgical History Surgical History: no surgical history - Social History Smoking Status: Current every day smoker Packs per day: 1ppd Smokeless Tobacco Status: No Alcohol use: heavy Drug use: none Medications and Allergies Metoprolol [Lopressor] 100 mg PO BID 10/11/15 [History] Folic Acid 1 mg PO DAILY #30 tablet 06/06/17 [Rx] Thiamine (B-1) [Vitamin B-1] 100 mg PO DAILY #30 tablet 06/06/17 [Rx] traZODone [TraZODone] 50 mg PO HS #30 tablet 06/06/17 [Rx] 3 Allergy/AdvReac Type Severity Reaction Status Date / Time No Known Allergies Allergy Verified 06/05/17 16:15 All Systems: A 10-system review of systems was performed and is negative for pertinent findings except as documented above in the HPI. Physical Examination Vital Signs: Vital Signs, Last 4 Hours Temp Pulse Resp BP Pulse Ox 06/06/17 07:55 98.5 F 67 16 108/70 98 General appearance: no acute distress Eyes: nonicteric ENT: oropharynx moist Neck: supple Effort: normal Auscultation: bilateral: rhonchi Cardiovascular: regular rate and rhythm Gastrointestinal: normoactive bowel sounds, soft, tender (Mild tenderness to deep palpation of the right upper quadrant) Integumentary: normal Extremities: no cyanosis, edema (Trace bilateral lower extremity edema which is symmetric) Musculoskeletal: no deformities normal mental status, non-focal exam mood appropriate Results - Laboratory Findings CBC and BMP: 06/06/17 05:35 06/06/17 05:35 PT/INR, D-dimer PT 15.6 Seconds (9.4-12.1) H 06/05/17 17:12 Abnormal lab findings: Abnormal lab results WBC 13.7 K/mcL (4.3-11.1) H 06/06/17 05:35 RBC 2.61 M/mcL (3.82-4.97) L 06/06/17 05:35 Hgb 10.1 g/dL (11.5-15.4) L 06/06/17 05:35 Hct 29.4 % (35.3-44.9) L 06/06/17 05:35 MCV 112.6 fL (83.0-100.0) H 06/06/17 05:35 MCH 38.7 pg (28.0-33.3) H 06/06/17 05:35 RDW 16.6 % (11.5-14.5) H 06/06/17 05:35 Neutrophils # 9.2 K/mcL (1.6-8.9) H 06/06/17 05:35 Nucleated RBCs/100 WBC 0.1 /100 WBC (0) H 06/05/17 17:12 Macrocytosis Present (Not Present) A 06/06/17 05:35 PT 15.6 Seconds (9.4-12.1) H 06/05/17 17:12 APTT 40.5 Seconds (26.0-36.0) H 06/05/17 17:12 Potassium 3.0 mEq/L (3.5-4.5) L 06/06/17 05:35 BUN 4 mg/dL (7-20) L 06/06/17 05:35 Calculated Osmolality 279 (280-300) L 06/06/17 05:35 Calcium 8.2 mg/dL (8.6-10.8) L 06/06/17 05:35 Total Bilirubin 4.3 mg/dL (0.2-1.2) H 06/06/17 05:35 Direct Bilirubin 3.0 mg/dL (0.0-0.5) H 06/05/17 17:12 Indirect Bilirubin 1.7 mg/dL (0.0-1.2) H 06/05/17 17:12 GGT 275 Units/L (9-36) H 06/06/17 05:35 AST 110 Units/L (5-34) H 06/06/17 05:35 Albumin 2.7 g/dL (3.5-5.0) L 06/06/17 05:35 Globulin 4.1 g/dL (2.4-3.5) H 06/06/17 05:35 Albumin/Globulin Ratio 0.7 (1.1-2.2) L 06/06/17 05:35 Vitamin B12 1043 pg/mL (213-816) H 06/06/17 05:35 Folate 2.3 ng/mL (7.0-31.4) L 06/06/17 05:35 Ur Specimen Adequacy See below A 06/05/17 18:33 Urine Color [place] (Yellow) A 06/05/17 18:33 Urine Clarity Turbid (Clear) A 06/05/17 18:33 Urine Microscopic WBC 3-5 per hpf (0-3) H 06/05/17 18:33 Ur Squamous Epith Cells Many per lpf (None-Few) H 06/05/17 18:33 Amorphous Sediment Many (Few) H 06/05/17 18:33 Urine Opiates Screen Positive ng/mL (Wbmkoh=788) H 06/06/17 00:30 U Marijuana (THC) Screen Positive ng/mL (Cutoff = 50) H 06/06/17 00:30 - Diagnostic Findings CT scan - chest: report reviewed, image reviewed - Clinical Findings Intake & Output: Intake & Output 06/05/17 06/06/17 06/06/17 23:59 07:59 15:59 Intake Total 1100 / 1100 360 / 360 Output Total 60 / 60 400 / 400 Balance 1040 / 1040 -40 / -40 Weight 117.197 kg Consult Discharge Plan - Plan Instructions: Chronic Hypertension (DC), Anemia (GEN) Referrals: Malena Schreiber [facility] OR MED[facility] [Primary Care Provider] - 06/17/17 1:00 pm Prescriptions: Folic Acid 1 mg PO DAILY #30 tablet Thiamine (B-1) [Vitamin B-1] 100 mg PO DAILY #30 tablet traZODone [TraZODone] 50 mg PO HS #30 tablet
[2017-06-06] MEDS ORDERED: *HR* LORazepam 2 MG/ML VIAL IVP PRN ×2 (11:04)
--- NOTE | 2017-06-06 16:05 | Internal Med Progress Note ---
Date of Encounter: 06/06/17 Time of Encounter: 13:45 - Assessment and plan (1) Alcoholic steatohepatitis Current Visit: Yes Status: Acute Assessment and plan: Liver enzymes trending down. Encouraged alcohol cessation. Patient reports taking alcohol mainly because of her insomnia. Will prescribe trazodone to help with her insomnia. licensed master social worker consult has been placed. No signs of acute alcohol withdrawal at this time. We will continue to monitor per [facility] protocol (2) Insomnia Current Visit: Yes Status: Acute Assessment and plan: Will start patient on trazodone. Qualifiers: Insomnia type: other insomnia Qualified Code(s): G47.09 - Other insomnia (3) Bronchiolitis Current Visit: Yes Status: Acute Assessment and plan: And of the abdomen and pelvis showed findings as to bronchiolitis in the chest. Pulmonology has been consulted. CT scan of the chest was ordered and this shows increasing size of lung nodule in the left lower lobe that is 2.2 cm x 1.2 cm. Multiple other solid nodules are also present bilaterally. Discussed with pulmonology. Started patient on Zosyn as patient may have had recurrent aspirations due to her chronic alcohol abuse causing these findings. We will also plan for bronchoscopy tomorrow. (4) Lung nodules Current Visit: Yes Status: Acute Assessment and plan: Discussed with pulmonology. We will do bronchoscopy. Follow-up CT scan in 4-6 weeks. (5) Alcohol abuse Current Visit: Yes Status: Acute (6) Biliary sludge Current Visit: Yes Status: Acute Assessment and plan: No signs of acute cholecystitis or cholelithiasis. Can be followed as outpatient (7) HTN (hypertension) Current Visit: Yes Status: Chronic Assessment and plan: Blood pressure is well controlled at this time Qualifiers: Hypertension type: essential hypertension Qualified Code(s): I10 - Essential (primary) hypertension (8) Macrocytic anemia Current Visit: Yes Status: Chronic Assessment and plan: With folic acid deficiency. Likely due to chronic alcohol abuse. Will start patient on folic acid replacement therapy. - Subjective Interval history: Patient was able to sleep well last night. Denies any anxiety or tremors at this time. No hallucinations. No shortness of breath or cough. No fever or chills described overnight. No new episodes of nausea or vomiting. Tolerated breakfast well this morning. - Constitutional Vitals: Temp Pulse Resp BP Pulse Ox 98.5 F 61 18 96/61 94 06/06/17 10:21 06/06/17 10:21 06/06/17 10:21 06/06/17 10:21 06/06/17 10:21 General appearance: Present: cooperative, A&O X 3, pleasant, no acute distress, answers questions appropriately - Neck Neck exam general surgery: Present: supple, trachea midline. Absent: lymphadenopathy - Respiratory Respiratory exam: Present: CTAB. Absent: accessory muscle use, rales, rhonchi, wheezes - Cardiovascular Cardiovascular exam: Present: RRR, +S1, +S2. Absent: diastolic murmur, gallop, rubs, systolic murmur - GI/Abdominal GI/Abdominal exam: Present: normal bowel sounds, soft, no peritoneal signs. Absent: distended, tenderness - Extremities Exam Extremities exam: Present: warm, radial pulses palpable and symmetrical. Absent : calf tenderness, cyanotic, pedal edema Internal Medicine: Result - Labs CBC & Chem 7: 06/06/17 05:35 06/06/17 05:35 Labs: Short CBC 06/06/17 Range/Units 05:35 WBC 13.7 H (4.3-11.1) K/mcL Hgb 10.1 L (11.5-15.4) g/dL Hct 29.4 L (35.3-44.9) % Plt Count 150 (140-400) K/mcL Neutrophils # 9.2 H (1.6-8.9) K/mcL BMP 06/06/17 05:35 Sodium 136 Potassium 3.0 L Chloride 100 Carbon Dioxide 26 BUN 4 L Creatinine 0.64 Glucose 97 Calcium 8.2 L Liver Function 06/06/17 Range/Units 05:35 Total Bilirubin 4.3 H (0.2-1.2) mg/dL GGT 275 H (9-36) Units/L AST 110 H (5-34) Units/L ALT 34 (0-55) Units/L Alkaline Phosphatase 100 (38-126) Units/L Albumin 2.7 L (3.5-5.0) g/dL - ABG Interpretation ABG results: PT/INR, D-dimer PT 15.6 Seconds (9.4-12.1) H 06/05/17 17:12 - Impressions Impressions Chest CT 06/06/17 11:30 IMPRESSION: 1. A predominantly solid 2.2 cm x 1.2 cm nodule in the peribronchovascular posterior basilar segment of the left lower lobe was previously seen as a 0.9 cm x 0.7 cm thick walled cystic lesion. An adjacent 0.9 cm x 0.7 cm solid nodule is new. The findings likely reflect an infectious or inflammatory process and could potentially represent focal bronchiectasis with mucous impaction. However, neoplasia is not excluded. Recommend follow-up chest CT in 3-6 months per the Fleischner Society recommendations for solid pulmonary nodules as below. 2. Additional solid nodules measuring up to 0.3 cm in the bilateral upper and bilateral lower lobes. Benign sequelae of an infectious inflammatory process are most likely. Recommend attention on follow-up imaging. 3. Infectious or inflammatory bronchiolitis predominantly in the lingula but with additional involvement elsewhere in the left upper and left lower lobes. 4. Minimal predominantly central bronchial wall thickening potentially due to bronchitis or reactive airways disease. 5. Heterogeneous appearance of the liver. Please refer to yesterday's abdomen and pelvis CT for further discussion. RECOMMENDATIONS: Fleischner Society guidelines for follow-up and management of incidentally detected pulmonary nodules: Multiple Solid Nodules: Nodule size greater than 8 mm In a high-risk patient, CT at 3-6 months, then CT at 18-24 months. Radiology 2017 http://pubs.rsna.org/doi/full/[email or web address] D/ / Chay Pepe MD / Chay Pepe MD Interpreting Provider: Chay Pepe MD - VTE Documentation of Mechanical Device: Intermittent pneumatic compression device Consult Discharge Plan - Plan Instructions: Chronic Hypertension (DC), Anemia (GEN) Referrals: Malena Schreiber CNP [Primary Care Provider] - 06/17/17 1:00 pm Prescriptions: Folic Acid 1 mg PO DAILY #30 tablet Thiamine (B-1) [Vitamin B-1] 100 mg PO DAILY #30 tablet traZODone [TraZODone] 50 mg PO HS #30 tablet
[2017-06-06] MEDS: Piperacillin/Tazobactam 3.375 GM in D5% in Water (Mini-Bag+) 100 ML IVPB SCH ×2 (17:46→23:45)
[2017-06-07] MEDS: Famotidine 20 MG/2 ML VIAL IVP SCH (06:05)
[2017-06-07] MEDS: Thiamine (B-1) 100 MG TABLET PO SCH (07:43)
[2017-06-07] MEDS: Metoprolol 100 MG TABLET PO SCH (07:43)
[2017-06-07] MEDS: Folic Acid 1 MG TABLET PO SCH (07:44)
[2017-06-07] MEDS: Vitamin B Complex/Vit C/Vit E 1 EACH TABLET PO SCH (07:48)
[2017-06-07] MEDS: Piperacillin/Tazobactam 3.375 GM in D5% in Water (Mini-Bag+) 100 ML IVPB SCH (08:02)
[2017-06-07] MEDS ORDERED: *HR* Midazolam HCl 5 MG/5 ML VIAL IVP ONE ×2 (10:39→10:54)
[2017-06-07] MEDS ORDERED: *HR* FentaNYL (PF) 100 MCG/2 ML VIAL ONE (10:39)
[2017-06-07] MEDS ORDERED: Lidocaine Viscous Oral Soln 15 ML SOLUTION ONE (10:39)
[2017-06-07] MEDS ORDERED: Tetracaine/Benzocaine/Butamben 200MG/SPRAY (100SPY/BOT) MM ONE (10:54)
[2017-06-07] MEDS ORDERED: *HR* FentaNYL (PF) 100 MCG/2 ML VIAL IVP ONE (10:54)
[2017-06-07] MEDS ORDERED: Lidocaine Viscous Oral Soln 15 ML SOLUTION MM ONE (10:54)
[2017-06-07] MEDS ORDERED: *HR* EPINEPHrine 1 MG/10 ML SYRINGE INTRATRACH PRN (10:54)
[2017-06-07] MEDS ORDERED: 0.9 % Sodium Chloride 1,000 ML IVC SCH (11:00)
--- NOTE | 2017-06-07 11:07 | Pre-Sedation Evaluation ---
Pre-sedation evaluation - Pre-sedation checklist Date of procedure: 06/07/17 Procedure: Bronchoscopy Recent Vitals: Last Vital Signs Temp 98.3 F 06/07/17 10:13 Pulse 62 06/07/17 10:52 Resp 18 06/07/17 10:52 BP 124/42 06/07/17 10:52 Pulse Ox 98 06/07/17 10:52 H&P (including ROS) documented in medical record: Yes Previous reaction to sedatives/anesthetics: No Dietary Status: NPO after Midnight Airway Assessment: Patient can open mouth completely, TMJ function normal, Neck with adequate range of motion Dentition: No loose teeth or bridges Possible difficult airway: No ASA Classification *see protocol: CLASS III-Severe systemic disease Plan of Care: Pt appropriate candidate for procedure/moderate/conscious sedation , Risks/benefits of procedure/sedation discussed w/ patient/family
[2017-06-07 11:20] VITALS: BP 140/85
--- NOTE | 2017-06-07 11:33 | Event Note ---
Date of Encounter: 06/07/17 Time of Encounter: 11:31 Bronchoscopy normal. BAL of LLL performed ( will f/u up Micro/Cytology). Patient tolerated procedure without difficulty. Ok to Discharge with Pulmonary F /u within [address] scan. Pulmonary will sign off.
--- NOTE | 2017-06-07 13:11 | Discharge Summary ---
Date of Encounter: 06/07/17 Time of Encounter: 13:09 - Discharge Diagnosis (1) Alcoholic steatohepatitis Priority: Primary Status: Acute (2) Insomnia Priority: Secondary Status: Acute Qualifiers: Insomnia type: other insomnia Qualified Code(s): G47.09 - Other insomnia (3) Bronchiolitis Priority: Secondary Status: Acute (4) Lung nodules Priority: Secondary Status: Acute (5) Alcohol abuse Priority: Secondary Status: Acute (6) Biliary sludge Priority: Secondary Status: Acute (7) HTN (hypertension) Priority: Secondary Status: Chronic Qualifiers: Hypertension type: essential hypertension Qualified Code(s): I10 - Essential (primary) hypertension (8) Macrocytic anemia Priority: Secondary Status: Chronic - Discharge Medications Prescriptions: Amoxicillin/Clavulanate [Augmentin] 875 mg PO BIDWM #20 tablet Folic Acid 1 mg PO DAILY #30 tablet Loperamide [Imodium] 2 mg PO QID PRN #20 capsule PRN Reason: Diarrhea Thiamine (B-1) [Vitamin B-1] 100 mg PO DAILY #30 tablet traZODone [TraZODone] 50 mg PO HS #30 tablet Home Medications: Metoprolol [Lopressor] 100 mg PO BID 10/11/15 [History] Folic Acid 1 mg PO DAILY #30 tablet 06/06/17 [Rx] Thiamine (B-1) [Vitamin B-1] 100 mg PO DAILY #30 tablet 06/06/17 [Rx] traZODone [TraZODone] 50 mg PO HS #30 tablet 06/06/17 [Rx] Amoxicillin/Clavulanate [Augmentin] 875 mg PO BIDWM #20 tablet 06/07/17 [Rx] Loperamide [Imodium] 2 mg PO QID PRN #20 capsule 06/07/17 [Rx] Allergies/Adverse Reactions: 3 Allergy/AdvReac Type Severity Reaction Status Date / Time No Known Allergies Allergy Verified 06/05/17 16:15 Procedures/tests Complete & Pending: Procedures Performed prior 72 hours Category Date Time Status CT chest wo con [CT] Stat Cat Scan 06/06/17 11:30 Completed Date of admission: 06/05/17 23:55 Primary care physician: Malena Schreiber CNP Consults: 06/06/17 09:35 Consult to Pulmonology [CONS] Routine Consulting Provider: [facility] Reason for Consult: Bronchiolitis per CT scan Time Notified: 09:35 Call Completed: Yes Discharging clinician: Melvi Rios Anticipated date of discharge: 06/07/17 - Patient Status Disposition: Home, Self-Care Condition: Good Functional capacity at discharge: independent ambulation Overall status at discharge: patient is progressing back to baseline - Ambulatory Orders Ambulatory Orders: CT chest wo con [CT] Time Frame: 4 Weeks, Facility: [facility], Location: Radiology - Discharge Instructions Instructions: Chronic Hypertension (DC), Anemia (GEN) Follow Up With: Jordy Hebert MD [Partnered Physician] - (4 weeks web request entered. ) Malena Schreiber CNP [Primary Care Provider] - 06/17/17 1:00 pm - Diet and Activity Activity: increase activity as tolerated Diet: low fat, low cholesterol, low salt diet Hospital course: Ms. Da Silva is a 42 year old female patient with history of alcohol abuse who presented to the ER with complaints of dominant pain with nausea and vomiting. She says her symptoms have been going on for 3 weeks. Patient had not eaten any solid food during this period. She drinks heavily especially at night due to her underlying insomnia. She was found to have elevated liver enzymes and bilirubin. Liver ultrasound showed hepatomegaly with heterogeneous echogenicity. Patient did have gallbladder sludge without any discreet calculus. CT scan of the abdomen and pelvis done in the ER also showed presence of possible bronchiolitis. Pulmonology was consulted and per the recommendations patient underwent CT scan of the chest. This showed multiple bilateral lung nodules and possible bronchiolitis. Pulmonology recommended treating patient with antibiotics to cover for possible underlying recurrent aspiration pneumonia and to repeat CT scan of the chest in 4 weeks. The patient also underwent bronchoscopy which was normal on visual examination. BAL has been performed and will be followed by pulmonology as outpatient. They did recommend repeating the CT scan of the chest in about 4 weeks to evaluate for resolution or progression of bronchiolitis. At this time, patient is awake and alert. Denies any cough or shortness of breath. Her symptoms are much better today and she is tolerating oral diet well. She is clinically stable for discharge. Patient did have low folic acid levels likely due to chronic alcohol abuse. She has been placed on oral folic acid replacement therapy. - Time Spent with Patient Total time spent providing and/or coordinating discharge services: Less than 30 minutes (25 min) - Constitutional Vitals: Temp Pulse Resp BP Pulse Ox 98.3 F 69 18 140/85 99 06/07/17 10:13 06/07/17 11:17 06/07/17 11:17 06/07/17 11:17 06/07/17 11:17 General appearance: Present: cooperative, A&O X 3, pleasant, no acute distress, answers questions appropriately - Neck Neck exam general surgery: Present: supple, trachea midline. Absent: lymphadenopathy - Respiratory Respiratory exam: Present: CTAB. Absent: accessory muscle use, rales, rhonchi, wheezes - Cardiovascular Cardiovascular exam: Present: RRR, +S1, +S2. Absent: diastolic murmur, gallop, rubs, systolic murmur - GI/Abdominal GI/Abdominal exam: Present: normal bowel sounds, soft, no peritoneal signs. Absent: distended, tenderness - Extremities Exam Extremities exam: Present: warm, radial pulses palpable and symmetrical. Absent : calf tenderness, cyanotic, pedal edema - VTE Documentation of Mechanical Device: Intermittent pneumatic compression device
[2017-06-07] MEDS ORDERED: traZODone 50 MG TABLET PO PRN (13:25)
[2017-06-07 14:03] LABS: Source of Body Fluid LLL BAL
[2017-06-07 15:19] LABS: Appearance of Body Fluid Clear (Clear)
[2017-06-07 15:20] LABS: Volume of Body Fluid 13 mL
[2017-06-07] MEDS ORDERED: Piperacillin/Tazobactam 3.375 GM in D5% in Water 50 ML IVPB SCH (16:00)
[2017-06-10 14:55] LABS: RVP Body Fluid Source BAL LLL
[2017-06-10 15:19] LABS: Influenza A PCR Body Fluid NOT DETECTED; Influenza B PCR Body Fluid NOT DETECTED; RSV PCR Body Fluid NOT DETECTED
== END 2017-06-07 14:03 | disposition home or self-care (01) | DRG 167 ==
LOC: EMEROO 16:11 → 3ANU 16:11
PROVIDERS: ADMIT Internal Medicine; ATTEND Internal Medicine
PROC: ENDOBRF (2017-06-07 11:00)